=== PATIENT | female | born 1950 | race Asian ===

== ENCOUNTER 2018-04-18 14:28 | Emergency (ER) | payer MEDICARE, MEDICAID ==
--- NOTE | 2018-04-18 15:46 | ED Physician Chart ---
ED Chief Complaint/HPI - Patient Information Date Seen:: 04/18/18 Time Seen:: 15:30 Chief Complaint:: low back pain History of Present Illness:: Patient has had low back pain for last 2-3 weeks with difficulty sitting and lying down for long periods of time. No recent trauma. Language barrier. Allergies:: Allergies Allergy/AdvReac Type Severity Reaction Status Date / Time No Known Allergies Allergy Verified 04/18/18 14:59 Vitals:: Vital Signs - 8 hr 04/18/18 14:54 HR 79 RR 16 BP 137/61 Review:: Transfer documents Reviewed ED Review of Systems - Review of Systems General/Constitutional: No fever, No chills, No weight loss, No weakness, No diaphoresis, No edema, No loss of appetite Skin: No skin lesions, No rash, No bruising Head: No headache, No light-headedness Eyes: No loss of vision, No pain, No diplopia ENT: No earache, No nasal drainage, No sore throat, No tinnitus Neck: No neck pain, No swelling, No thyromegaly, No stiffness, No mass noted Cardio Vascular: No chest pain, No palpitations, No PND, No orthopnea, No edema Pulmonary: No SOB, No cough, No sputum, No wheezing GI: No nausea, No vomiting, No diarrhea, No pain, No melena, No hematochezia, No constipation, No hematemesis G/U: No dysuria, No frequency, No hematuria Musculoskeletal: Back pain, No back pain, No muscle pain Endocrine: No polyuria, No polydipsia Psychiatric: No prior psych history, No depression, No anxiety, No suicidal ideation Hematopoietic: No bruising, No lymphadenopathy Allergic/Immuno: No urticaria, No angioedema Neurological: No syncope, No focal symptoms, No weakness, No paresthesia, No headache, No seizure, No dizziness, No confusion, No vertigo ED Past Medical History - Past Medical History Past Medical History: HTN, CAD, Dyslipidemia, PUD/GERD, Arthritis, Other ( hyperlipidemia; cachexia; osteoporosis; anemia) Family History: Other (unavailable) Social History: Care Facility Surgical History: other (unavailable) Psychiatricy History: Other (unavailable) Family Medical History - Family Member Mother History Unknown: Yes ED Physical Exam - Physical Examination General/Constitutional: Awake, Well-developed, well-nourished, Alert, No distress, GCS 15, Non-toxic appearing, Ambulatory Head: Atraumatic Eyes: Lids, conjuctiva normal, PERRL, EOMI Skin: Nl inspection, No rash, No skin lesions, No ecchymosis, Well hydrated, No lymphadenopathy ENMT: External ears, nose nl, Nasal exam nl Other ENMT comments:: 3.5/4 periodontal disease Neck: Nontender, Full ROM w/o pain, No JVD, No nuchal rigidity, No bruit, No mass, No stridor Respiratory: Nl effort/Exclusion, Clear to Auscultation, No Wheeze/Rhonchi/Rales Cardio Vascular: RRR, No murmur, gallop, rubs, NL S1 S2 GI: No tenderness/rebounding/guarding, No organomegaly, No hernia, Normal BS's, Nondistended, No mass/bruits, No McBurney tenderness : No CVA tenderness Extremities: Normal digits & nails Other Extremities comments:: Lower extremities: Straight leg raising of about 70 bilaterally with 5-10 of knee flexion; deep tendon reflexes knees 1.5 out of 4; ankles 2 out of 4 Misc: Normal back, No paraspinal tenderness ED Labs/Radiology/EKG Results - Lab Results Results: Laboratory Results - last 24 hr 04/18/18 04/18/18 16:56 16:56 WBC 6.8 RBC 3.82 Hgb 12.2 Hct 36.3 L MCV 95.0 MCH 32.0 H MCHC Differential 33.7 RDW 13.0 Plt Count 285 MPV 6.2 Neutrophils % 66.7 Lymphocytes % 23.6 Monocytes % 5.9 Eosinophils % 3.3 Basophils % 0.5 Sodium 140 Potassium 3.4 L Chloride 104 Carbon Dioxide 29.6 Anion Gap 9.8 BUN 21 Creatinine 0.8 Est GFR ( Amer) > 60.0 Est GFR (Non-Af Amer) > 60.0 BUN/Creatinine Ratio 26.3 Glucose 98 Calcium 9.4 - Radiology Results Results: Lumbar spine showed osteopenia and increased stool ED Assessment - Assessment General Assessment: I spoke to Dr. Aguirre at about 1725 and he wishes the patient to return to her extended care facility. ED Septic Shock - . Is Septic Shock (SBP<90, OR Lactate>4 mmol\L) present?: No - <6hrs of presentation: Vital Signs: Vital Signs - 8 hr 04/18/18 14:54 HR 79 RR 16 BP 137/61 ED Reassessment (Disposition) - Reassessment Reassessment Condition:: Unchanged - Diagnosis Diagnosis:: Low back pain; osteopenia; constipation; hypokalemia - Aftercare/Follow up Instructions Aftercare/Follow-Up Instructions:: Refer to Discharge Instructions - Patient Disposition Discharge/Transfer:: Assistant Manager/[facility] Condition at Disposition:: Stable, Unchanged
[2018-04-18 17:05] LABS: % BASOPHILS 0.5 % (0.0-2.0); % EOSINOPHILS 3.3 % (0.0-5.0); % LYMPHOCYTES 23.6 % (20.0-50.0); % MONOCYTES 5.9 % (2.0-10.0); % NEUTROPHILS 66.7 % (40.0-80.0); EOSINOPHILE ABSOLUTE 0.2 Th/cmm (0.1-0.4); HEMATOCRIT 36.3 % (41.0-60); HEMOGLOBIN 12.2 gm/dL (12-16); LYMPHOCYTE ABSOLUTE 1.6 Th/cmm (1.5-3.0); MEAN CORPUSCULAR HGB CONC 33.7 pg (28.0-36.0); MEAN PLATELET VOLUME 6.2 fl; MONOCYTE ABSOLUTE 0.4 Th/cmm (0.3-1.0); NEUTROPHILE ABSOLUTE 4.6 Th/cmm (1.8-8.0); PLATELET COUNT 285 Th/cmm (150-400); RED BLOOD COUNT 3.82 Mil/cmm (3.80-5.20); WHITE BLOOD COUNT 6.8 Th/cmm (4.8-10.8)
[2018-04-18 17:24] LABS: ANION GAP 9.8 (7.0-16.0); BUN - UREA NITROGEN 21 mg/dL (7-25); CALCIUM SERUM 9.4 mg/dL (8.6-10.3); CARBON DIOXIDE 29.6 mEq/L (21.0-31.0); CHLORIDE 104 mEq/L (98-107); CREATININE - SERUM 0.8 mg/dL (0.6-1.2); GFR AFRICAN-AMERICAN > 60.0 ml/min (>90); GFR NON AFRICAN-AMERICAN > 60.0 ml/min; GLUCOSE 98 mg/dL (70-105); POTASSIUM SERUM 3.4 mEq/L (3.5-5.1); SODIUM SERUM 140 mEq/L (136-145)
[2018-04-18] MEDS ORDERED: Potassium Chloride 20 mEq ER Tab PO ONE ×2 (17:35→17:38)
--- NOTE | 2018-04-19 08:48 | Diagnostic Imaging Report ---
Lumbar spine 3 views Indication: Low back pain Comparison: none Findings: Exam is limited due to body habitus and osteopenia. There appear to be mild age-indeterminate but possibly chronic compression fractures of L2 and L4. [id number] degenerative changes are noted. No subluxation. Spine scoliosis is noted. There is a least partial fusion of the SI joints. Copious stool is noted gas-filled loops of bowel. Impression: Limited exam due to body habitus and osteopenia. There is very mild age indeterminate but possibly chronic compression fractures of L2 and L4. Assessment was limited due to patient's osteopenia. If necessary CT follow-up may be obtained. Mild to moderate general changes. Scoliosis. Copious stool with gas-filled loops of bowel. In the setting of trauma, if clinical symptoms persist and there is continued concern for an occult fracture, follow up exams in 5-7 days is suggested.
== END 2018-04-18 18:15 ==
LOC: ER 14:28
DX: M54.5 Low back pain (principal); E87.6 Hypokalemia; K59.00 Constipation, unspecified; M85.88 Other specified disorders of bone density and structure, other site; I10 Essential (primary) hypertension; K21.9 Gastro-esophageal reflux disease without esophagitis; E78.5 Hyperlipidemia, unspecified; M19.90 Unspecified osteoarthritis, unspecified site
CPT/HCPCS: 36415-UA; 72100-TC; 80048-TC; 85025-TC

== ENCOUNTER 2018-05-22 11:55 | Inpatient (IN) | payer MEDICARE, MEDICAID ==
[2018-05-22] MEDS ORDERED: Sodium Chloride 0.9% 1,000 ML IV ONE (12:23)
--- NOTE | 2018-05-22 12:34 | ED Physician Chart ---
ED Chief Complaint/HPI - Patient Information Date Seen:: 05/22/18 Time Seen:: 12:00 Chief Complaint:: Vomiting History of Present Illness:: onset x 2 days of N/V/D x 10; weakness, Abd. Pain, and activity; no report of trauma, H/As, neck pain, C/P, SOB, A/C, fever, chills, or urinary s/s Allergies:: Allergies Allergy/AdvReac Type Severity Reaction Status Date / Time No Known Allergies Allergy Verified 05/22/18 12:10 Vitals:: Vital Signs - 8 hr 05/22/18 11:58 Temp 98.4 F HR 75 RR 18 BP 135/78 O2 Sat % 99 Historian:: Patient, EMS Review:: Nurse's Note Reviewed, Old Chart Reviewed, EMS run form Reviewed ED Review of Systems - Review of Systems General/Constitutional: No fever, No chills, No weight loss, Weakness, No diaphoresis, No edema, No loss of appetite Skin: No skin lesions, No rash, No bruising Head: No headache, No light-headedness Eyes: No loss of vision, No pain, No diplopia ENT: No earache, No nasal drainage, No sore throat, No tinnitus Neck: No neck pain, No swelling, No thyromegaly, No stiffness, No mass noted Cardio Vascular: No chest pain, No palpitations, No PND, No orthopnea, No edema Pulmonary: No SOB, No cough, No sputum, No wheezing GI: Nausea, Vomiting, Diarrhea, Pain, No melena, No hematochezia, No constipation, No hematemesis G/U: No dysuria, No frequency, No hematuria, No nacturia Audiovisual Lead Technician: No vaginal discharge, No abnormal vaginal bleed, No contraction Musculoskeletal: No bone or joint pain, No back pain, No muscle pain Endocrine: No polyuria, No polydipsia Psychiatric: No prior psych history, No depression, No anxiety, No suicidal ideation, No homicidal ideation, No auditory hallucination, No visual hallucination Hematopoietic: No bruising, No lymphadenopathy Allergic/Immuno: No urticaria, No angioedema Neurological: No syncope, No focal symptoms, Weakness, No paresthesia, No headache, No seizure, No dizziness, No confusion, No vertigo ED Past Medical History - Past Medical History Obtainable: Yes Past Medical History: HTN, Dyslipidemia, PUD/GERD Family History: HTN Social History: Non Smoker, No Alcohol, No Drug Use, Single, Care Facility Surgical History: None Psychiatricy History: None Medication: Reviewed Family Medical History - Family Member Mother History Unknown: Yes ED Physical Exam - Physical Examination General/Constitutional: Awake, Well-developed, well-nourished, Alert, No distress, GCS 15, Non-toxic appearing, Ambulatory Head: Atraumatic Eyes: Lids, conjuctiva normal, PERRL, EOMI Skin: Nl inspection, No rash, No skin lesions, No ecchymosis, Well hydrated, No lymphadenopathy ENMT: External ears, nose nl, TM canals nl, Nasal exam nl, Lips, teeth, gums nl , Oropharynx nl, Tonsils nl Neck: Nontender, Full ROM w/o pain, No JVD, No nuchal rigidity, No bruit, No mass, No stridor Respiratory: Nl effort/Exclusion, Clear to Auscultation, No Wheeze/Rhonchi/Rales Cardio Vascular: RRR, No murmur, gallop, rubs, NL S1 S2, Carotid/Femoral/Distal pulses equal bilaterally GI: No tenderness/rebounding/guarding, No organomegaly, No hernia, Normal BS's, Nondistended, No mass/bruits, No McBurney tenderness, Rectum exam nl Other GI comments:: no pulsatile masses : No CVA tenderness Extremities: No tenderness or effusion, Full ROM, normal strength in all extremities, No edema, Normal digits & nails Neuro/Psych: Alert/oriented, DTR's symmetric, Normal sensory exam, Normal motor strength, Judgement/insight normal, Mood normal, Normal gait, No focal deficits Misc: Normal back, No paraspinal tenderness ED Labs/Radiology/EKG Results - Lab Results Comments:: Reviewed - Radiology Results Comments:: CXR: COPD; NAD - EKG Interpretations EKG Time:: 12:32 Rate & Rhythm: 69; NSR Comments:: non-specific st-t changes ED Septic Shock - . Is Septic Shock (SBP<90, OR Lactate>4 mmol\L) present?: No - <6hrs of presentation: Vital Signs: Vital Signs - 8 hr 05/22/18 11:58 Temp 98.4 F HR 75 RR 18 BP 135/78 O2 Sat % 99 ED Reassessment (Disposition) - Reassessment Reassessment Condition:: Improved - Diagnosis Diagnosis:: Dx: N/V/D; AGE; Gastroenteritis; Dehydration; Hypokalemia; Hypercalcemia - Aftercare/Follow up Instructions Aftercare/Follow-Up Instructions:: Counseled pt regarding lab results/diagnosis & need follow up, Counseled pt & family regarding lab results/diagnosis & need follow up - Patient Disposition Discharge/Transfer:: Acute Care w/in this hosp Accepting Physician:: Dr. Sauer Time Called:: 1345 Time Responded:: 13:45 Admitted to:: Telemetry Spoke to:: Dr. Sauer Admitting Medical Physician:: Dr. Sauer Condition at Disposition:: Stable, Improved
[2018-05-22 12:50] LABS: % BASOPHILS 0.7 % (0.0-2.0); % EOSINOPHILS 0.5 % (0.0-5.0); % LYMPHOCYTES 28.4 % (20.0-50.0); % MONOCYTES 7.1 % (2.0-10.0); % NEUTROPHILS 63.3 % (40.0-80.0); HEMATOCRIT 38.7 % (41.0-60); HEMOGLOBIN 13.3 gm/dL (12-16); LYMPHOCYTE ABSOLUTE 1.6 Th/cmm (1.5-3.0); MEAN CELL VOLUME 94.1 fl (81-100); MEAN CORPUSCULAR HEMOGLOBIN 32.2 pg (27.0-31.0); MEAN CORPUSCULAR HGB CONC 34.3 pg (28.0-36.0); MEAN PLATELET VOLUME 6.4 fl; MONOCYTE ABSOLUTE 0.4 Th/cmm (0.3-1.0); NEUTROPHILE ABSOLUTE 3.8 Th/cmm (1.8-8.0); PLATELET COUNT 236 Th/cmm (150-400); RED BLOOD COUNT 4.12 Mil/cmm (3.80-5.20); RED CELL DISTRIBUTION WIDTH 12.9 % (11.5-20.0); WHITE BLOOD COUNT 5.8 Th/cmm (4.8-10.8)
[2018-05-22 13:08] LABS: PROTHROMBIN TIME (TEST) 10.4 SECONDS (9.5-11.5)
[2018-05-22 13:10] LABS: AMYLASE SERUM 98 U/L (29-103); LIPASE 71 U/L (11-82)
[2018-05-22 13:13] LABS: ALB/GLOB RATIO 1.7 (1.0-1.8); ALBUMIN 4.2 gm/dL (3.7-5.3); ALKALINE PHOSPHATASE 55 U/L (34-104); ANION GAP 12.1 (7.0-16.0); BILIRUBIN,TOTAL 0.7 mg/dL (0.3-1.0); BUN - UREA NITROGEN 20 mg/dL (7-25); CALCIUM SERUM 10.7 mg/dL (8.6-10.3); CARBON DIOXIDE 33.5 mEq/L (21.0-31.0); CHLORIDE 93 mEq/L (98-107); CHOLESTEROL 157 mg/dL (<200); CREATININE - SERUM 0.8 mg/dL (0.6-1.2); CREATININE KINASE 52 U/L (30-223); GFR AFRICAN-AMERICAN > 60.0 ml/min (>90); GFR NON AFRICAN-AMERICAN > 60.0 ml/min; GLUCOSE 101 mg/dL (70-105); HDL -HIGH DENSITY LIPOPROTEIN 57 mg/dL (23-92); SGOT 17 U/L (13-39); SGPT/ALT 7 U/L (7-52); SODIUM SERUM 136 mEq/L (136-145); TOTAL PROTEIN,SERUM 6.7 gm/dL (6.0-8.3); TRIGLYCERIDES 97 mg/dL (<150)
--- NOTE | 2018-05-22 13:20 | Diagnostic Imaging Report ---
Portable chest x-ray HISTORY: Pain The heart size is normal. Atherosclerotic calcification seen in the aorta. No acute focal pulmonary processes. Small radiodensities project over the right shoulder and within the soft tissues adjacent to the left humerus. IMPRESSION: 1. No acute focal pulmonary processes 2. Atherosclerotic vascular changes
[2018-05-22 13:26] LABS: DDIMER QUANT < 100 ng/mL (100-400)
[2018-05-22 13:42] LABS: POTASSIUM SERUM 2.6 mEq/L (3.5-5.1)
[2018-05-22] MEDS ORDERED: Potassium Chloride 20 mEq ER Tab PO ONE ×2 (13:47→14:50)
[2018-05-22 15:04] LABS: URINE SOURCE CLEAN C
[2018-05-22 15:10] LABS: URINE BILIRUBIN NEGATIVE (NEGATIVE); URINE BLOOD NEGATIVE (NEGATIVE); URINE GLUCOSE (UA) NEGATIVE (NEGATIVE); URINE KETONE TRACE mg/dL (NEGATIVE); URINE LEUKOCYTE ESTERASE SMALL (NEGATIVE); URINE NITRATE NEGATIVE (NEGATIVE); URINE PROTEIN NEGATIVE (NEGATIVE)
[2018-05-22 15:27] LABS: URINE CLARITY CLEAR (CLEAR); URINE COLOR YELLOW; URINE MICROSCOPIC INDICATED? YES
[2018-05-22 15:29] LABS: URINE BACTERIA 1+ /hpf (NONE SEEN); URINE EPITHELIAL CELLS MODERATE /lpf (FEW); URINE RBC 0-2 /hpf (0-5)
[2018-05-22 15:30] LABS: URINE AMORPHOUS SEDIMENT FEW PHOSPHATES (NONE SEEN)
[2018-05-22] MEDS ORDERED: cefTRIAXone 1 GM in Sodium Chloride 0.9% 50 ML IV ONE (15:53)
[2018-05-22] MEDS ORDERED: Hydrocodone/APAP 5mg/325mg Tab PO PRN (16:19)
[2018-05-22] MEDS: D5-0.45NS 1,000 ML IV SCH (18:31)
[2018-05-22] MEDS: Levofloxacin 500mg/100mL 500 MG/100 ML BAG IV SCH (18:42)
[2018-05-22 19:02] VITALS: BP 134/75
[2018-05-22] MEDS: metroNIDAZOLE 500mg/NS 100mL 500 MG/100 ML BAG IV SCH (20:36)
[2018-05-22] MEDS: Atorvastatin Calcium 10 MG TAB PO SCH (20:36)
[2018-05-23] MEDS: metroNIDAZOLE 500mg/NS 100mL 500 MG/100 ML BAG IV SCH ×3 (01:33→17:22)
[2018-05-23 06:08] LABS: % EOSINOPHILS 0.7 % (0.0-5.0); % LYMPHOCYTES 32.9 % (20.0-50.0); % MONOCYTES 10.5 % (2.0-10.0); % NEUTROPHILS 55.9 % (40.0-80.0); HEMATOCRIT 37.9 % (41.0-60); HEMOGLOBIN 12.7 gm/dL (12-16); LYMPHOCYTE ABSOLUTE 1.9 Th/cmm (1.5-3.0); MEAN CELL VOLUME 95.8 fl (81-100); MEAN CORPUSCULAR HGB CONC 33.4 pg (28.0-36.0); MEAN PLATELET VOLUME 6.6 fl; MONOCYTE ABSOLUTE 0.6 Th/cmm (0.3-1.0); NEUTROPHILE ABSOLUTE 3.2 Th/cmm (1.8-8.0); RED BLOOD COUNT 3.96 Mil/cmm (3.80-5.20); RED CELL DISTRIBUTION WIDTH 13.6 % (11.5-20.0); WHITE BLOOD COUNT 5.7 Th/cmm (4.8-10.8)
[2018-05-23 06:14] LABS: PLATELET COUNT 182 Th/cmm (150-400)
[2018-05-23 06:23] LABS: BUN - UREA NITROGEN 10 mg/dL (7-25); CARBON DIOXIDE 27.1 mEq/L (21.0-31.0); CHLORIDE 102 mEq/L (98-107); CREATININE - SERUM 0.6 mg/dL (0.6-1.2); GFR AFRICAN-AMERICAN > 60.0 ml/min (>90); GFR NON AFRICAN-AMERICAN > 60.0 ml/min; GLUCOSE 140 mg/dL (70-105); POTASSIUM SERUM 3.1 mEq/L (3.5-5.1); SODIUM SERUM 137 mEq/L (136-145)
[2018-05-23] MEDS: D5-0.45NS 1,000 ML IV SCH (07:47)
--- NOTE | 2018-05-23 07:52 | Diagnostic Imaging Report ---
CT scan abdomen and pelvis without intravenous contrast HISTORY: Vomiting Total DLP equals 244 CTDI equals 6.0 Axial sections were obtained from the xiphoid process down to the pubic symphysis. The liver exhibits a normal size with a homogeneous parenchyma. No focal lesions. The spleen appears normal. Suboptimal delineation of the pancreatic margins. No obvious focal lesions. No focal renal lesions. No hydronephrosis. The exam of the pelvis demonstrates preservation of normal fat planes. No abnormal soft tissue masses or abnormal fluid collections. Mildly distended stool-filled large bowel noted. Findings may be associated with a degree of constipation. There is a scoliosis of the thoracolumbar spine convexity to the left associated with diffuse degenerative changes. There is compression involving the body of L2 along with sclerotic change. Pathologic compression cannot be excluded. Clinical correlation is needed. IMPRESSION: 1. Moderately distended stool-filled large bowel. The findings may be associated with constipation. 2. Compression involving the body of L2 with sclerotic change. A pathologic fracture/compression cannot be ruled out. Clinical correlation needed. 3. Scoliosis and diffuse degenerative changes throughout the spine
[2018-05-23] MEDS ORDERED: Probiotic Screen MC PRN (11:45)
[2018-05-23] MEDS ORDERED: Potassium Chloride 20 mEq ER Tab PO ONE (13:27)
--- NOTE | 2018-05-23 14:15 | History & Physical ---
ADMIT DATE: 05/23/2018 PATIENT IDENTIFICATION: A 68-year-old female. CHIEF COMPLAINT: Nausea, vomiting, diarrhea for last 2 days. HISTORY OF PRESENT ILLNESS: A 68-year-old resident of assisted living facility, has history of hypertension, hyperlipidemia, peptic ulcer disease, brought in to the Emergency Room for evaluation of persistent nausea, vomiting and diarrhea. After being ordered by Emergency Room MD, the patient is being admitted to the hospital for further treatment. PAST MEDICAL HISTORY: Remarkable for: 1. Hypertension. 2. DJD. 3. GERD. 4. Hyperlipidemia. MEDICATIONS: List has been reviewed and reconciled appropriately. ALLERGIES: The patient is not allergic to any medications. SOCIAL HISTORY: The patient resides in assisted living facility. No history of smoking cigarette, alcohol, or drug use. FAMILY MEDICAL HISTORY: Remarkable for hypertension. REVIEW OF SYSTEMS: Limited due to her language barrier. PHYSICAL EXAMINATION: GENERAL: The patient is alert, awake, lying in the bed without any acute distress. VITAL SIGNS: Temperature 99, pulse is 61, respiratory rate 18, blood pressure 112/63. HEENT: Normocephalic, atraumatic. Extraocular muscles intact. Tongue was pink and dry. NECK: Supple, no JVD, no lymphadenopathy, thyromegaly. HEART: Both heart sounds are regular. CHEST AND LUNGS: Equal in expansion, no expiratory wheezing. ABDOMEN: Soft. No guarding, rigidity or epigastric tenderness noted. Bowel sounds are present. No palpable mass. EXTREMITIES: No edema. NEUROLOGIC: Nonfocal. AVAILABLE DIAGNOSTIC DATA: Potassium of 2.6, BUN and creatinine is 20 and 0.8. CBC is within normal limit. D-dimer is less than 100. Urinalysis unremarkable. CLINICAL IMPRESSION: 1. Life threatening hypokalemia. 2. Acute onset of nausea, vomiting, diarrhea, most likely gastroenteritis. 3. Fecal impaction. 4. Hypertension. 5. Degenerative joint disease. 6. Gastroesophageal reflux disease and gastritis. PLAN: 1. Admit this patient to Med/Surg floor. 2. IV fluid. 3. Symptomatic therapy. 4. IV Flagyl and Levaquin. 5. Stool study. 6. Probiotic. 7. Await for blood cultures. 8. General nursing care. 9. Follow up lab. 10. Care plan reviewed and discussed. JOB# [id number]
[2018-05-23] MEDS: Levofloxacin 500mg/100mL 500 MG/100 ML BAG IV SCH (17:15)
[2018-05-23] MEDS: Atorvastatin Calcium 10 MG TAB PO SCH (20:01)
[2018-05-24] MEDS: metroNIDAZOLE 500mg/NS 100mL 500 MG/100 ML BAG IV SCH ×3 (00:50→16:48)
[2018-05-24] MEDS: D5-0.45NS 1,000 ML IV SCH ×2 (00:51→15:42)
[2018-05-24 06:45] LABS: % EOSINOPHILS 1.8 % (0.0-5.0); % LYMPHOCYTES 30.8 % (20.0-50.0); % MONOCYTES 8.4 % (2.0-10.0); EOSINOPHILE ABSOLUTE 0.1 Th/cmm (0.1-0.4); HEMATOCRIT 36.4 % (41.0-60); HEMOGLOBIN 12.4 gm/dL (12-16); LYMPHOCYTE ABSOLUTE 1.5 Th/cmm (1.5-3.0); MEAN CORPUSCULAR HEMOGLOBIN 32.6 pg (27.0-31.0); MEAN PLATELET VOLUME 6.7 fl; MONOCYTE ABSOLUTE 0.4 Th/cmm (0.3-1.0); NEUTROPHILE ABSOLUTE 2.9 Th/cmm (1.8-8.0); PLATELET COUNT 205 Th/cmm (150-400); RED BLOOD COUNT 3.79 Mil/cmm (3.80-5.20); RED CELL DISTRIBUTION WIDTH 13.4 % (11.5-20.0); WHITE BLOOD COUNT 4.9 Th/cmm (4.8-10.8)
[2018-05-24 06:59] LABS: ALB/GLOB RATIO 1.4 (1.0-1.8); ALBUMIN 3.6 gm/dL (3.7-5.3); ALKALINE PHOSPHATASE 44 U/L (34-104); ANION GAP 8.3 (7.0-16.0); BILIRUBIN,TOTAL 0.4 mg/dL (0.3-1.0); BUN - UREA NITROGEN 8 mg/dL (7-25); CALCIUM SERUM 8.8 mg/dL (8.6-10.3); CARBON DIOXIDE 27.6 mEq/L (21.0-31.0); CHLORIDE 104 mEq/L (98-107); CREATININE - SERUM 0.7 mg/dL (0.6-1.2); GFR AFRICAN-AMERICAN > 60.0 ml/min (>90); GFR NON AFRICAN-AMERICAN > 60.0 ml/min; GLUCOSE 128 mg/dL (70-105); MAGNESIUM 1.8 mg/dL (1.9-2.7); SGOT 14 U/L (13-39); SGPT/ALT 6 U/L (7-52); SODIUM SERUM 137 mEq/L (136-145); TOTAL PROTEIN,SERUM 6.1 gm/dL (6.0-8.3)
[2018-05-24 07:40] LABS: POTASSIUM SERUM 2.9 mEq/L (3.5-5.1)
[2018-05-24] MEDS ORDERED: Potassium Chloride 20 mEq ER Tab PO ONE (09:00)
[2018-05-24] MEDS: Lactobacillus Rhamnosus GG 15 Billion CFU CAP.SPRINK PO SCH (09:22)
[2018-05-24] MEDS: Levofloxacin 500mg/100mL 500 MG/100 ML BAG IV SCH (15:36)
[2018-05-24] MEDS ORDERED: Mag Sulfate 2gm/50mL Premix 2 GM/50 ML BAG IV ONE (19:10)
[2018-05-24] MEDS: Atorvastatin Calcium 10 MG TAB PO SCH (20:53)
[2018-05-25] MEDS: metroNIDAZOLE 500mg/NS 100mL 500 MG/100 ML BAG IV SCH ×3 (01:35→16:58)
--- NOTE | 2018-05-25 04:55 | Progress Notes ---
DATE: IDENTIFICATION: A 68-year-old female. SUBJECTIVE: The patient seen and examined. The patient is lying in the bed. The patient has no new event. Potassium is reported low. OBJECTIVE: GENERAL: The patient is eating better. Diarrhea has decreased. VITAL SIGNS: Temperature 98, pulse is 84, respiratory rate 18, and blood pressure 112/52. HEENT: No facial asymmetry. Poor dentition. NECK: Supple, no JVD. HEART: Regular. LUNGS: Clear. ABDOMEN: Soft. EXTREMITIES: No edema. CLINICAL IMPRESSION: 1. Hypokalemia. 3. Acute gastroenteritis. 4. Degenerative joint disease. 5. Hypertension. 6. Hyperlipidemia. PLAN: 1. Replace potassium and magnesium. 2. Follow up lab. 3. Symptoms management. 4. General nursing care. 5. Continue current plan as prescribed. 6. Care plan reviewed and discussed. JOB# [id number]
[2018-05-25 07:06] LABS: % EOSINOPHILS 4.6 % (0.0-5.0); % LYMPHOCYTES 27.1 % (20.0-50.0); % NEUTROPHILS 61.3 % (40.0-80.0); EOSINOPHILE ABSOLUTE 0.2 Th/cmm (0.1-0.4); HEMATOCRIT 39.6 % (41.0-60); HEMOGLOBIN 13.5 gm/dL (12-16); LYMPHOCYTE ABSOLUTE 1.5 Th/cmm (1.5-3.0); MEAN CELL VOLUME 94.9 fl (81-100); MEAN CORPUSCULAR HEMOGLOBIN 32.3 pg (27.0-31.0); MEAN PLATELET VOLUME 6.4 fl; MONOCYTE ABSOLUTE 0.4 Th/cmm (0.3-1.0); NEUTROPHILE ABSOLUTE 3.3 Th/cmm (1.8-8.0); PLATELET COUNT 208 Th/cmm (150-400); RED BLOOD COUNT 4.17 Mil/cmm (3.80-5.20); RED CELL DISTRIBUTION WIDTH 13.3 % (11.5-20.0); WHITE BLOOD COUNT 5.4 Th/cmm (4.8-10.8)
[2018-05-25 07:16] LABS: ANION GAP 8.4 (7.0-16.0); BUN - UREA NITROGEN 8 mg/dL (7-25); CALCIUM SERUM 8.9 mg/dL (8.6-10.3); CARBON DIOXIDE 27.4 mEq/L (21.0-31.0); CHLORIDE 106 mEq/L (98-107); CREATININE - SERUM 0.7 mg/dL (0.6-1.2); GFR AFRICAN-AMERICAN > 60.0 ml/min (>90); GFR NON AFRICAN-AMERICAN > 60.0 ml/min; GLUCOSE 105 mg/dL (70-105); MAGNESIUM 2.5 mg/dL (1.9-2.7); POTASSIUM SERUM 3.8 mEq/L (3.5-5.1); SODIUM SERUM 138 mEq/L (136-145)
--- NOTE | 2018-05-25 09:31 | Diagnostic Imaging Report ---
KUB abdominal film (portable) HISTORY: Pain, fecal impaction The exam demonstrates moderately distended stool-filled large bowel consistent with changes of constipation. Bowel gas pattern otherwise nonspecific. No free intraperitoneal air. Extensive vascular calcification noted. IMPRESSION: 1. Stool-filled large bowel and rectum consistent with constipation. Bowel gas pattern otherwise nonspecific. 2. Extensive atherosclerotic vascular changes
[2018-05-25] MEDS: Lactobacillus Rhamnosus GG 15 Billion CFU CAP.SPRINK PO SCH (09:43)
--- NOTE | 2018-05-26 09:29 | Progress Notes ---
DATE: IDENTIFICATION: A 68-year-old female. The patient seen and examined. The patient speaks [place] only and discussed with nursing staff, no new event. The patient remained hemodynamically stable. OBJECTIVE: VITAL SIGNS: Temperature 98.4, pulse is 70, respiratory rate is 18, blood pressure 131/70. HEENT: No facial asymmetry. NECK: Supple, no JVD. HEART: Regular. CHEST AND LUNGS: Equal in expansion, no expiratory wheezing. ABDOMEN: Soft. No guarding. No rigidity. Bowel sounds present. No palpable mass. EXTREMITIES: No edema. CLINICAL IMPRESSION: 1. Hypokalemia, resolved. 2. Acute gastroenteritis, resolved. 3. Hypertension. 4. Hyperlipidemia. 5. Degenerative joint disease. PLAN: Since the patient looks hemodynamically stable, the patient does have constipation on x-ray and extensive atherosclerotic vascular changes. The patient can have anti-constipation medications as an outpatient. Care plan has been reviewed and discussed with staff as well. JOB# [id number]
--- NOTE | 2018-05-29 17:37 | Discharge Summary ---
DATE OF DISCHARGE: 05/25/2018 PRINCIPAL DIAGNOSES: 1. Acute gastroenteritis. 2. Hypokalemia. 3. Hypertension. 4. Hyperlipidemia. 5. Degenerative joint disease. 6. Protein-calorie malnutrition. BRIEF STATEMENT FOR THE REASON FOR ADMISSION: A 68-year-old female, resident of half-way, brought in to the Emergency Room after the patient was having nausea, vomiting, diarrhea for last 2 days. Please refer to my H and P for further information. HOSPITAL COURSE: The patient was admitted to [facility]. The patient did have a life-threatening hypokalemia, which was replaced. Symptomatic therapy for nausea, vomiting, diarrhea was given to the patient. The patient also noted a fecal impaction as well. The patient did have empirical IV Levaquin and Flagyl. Stool study was ordered, though since the patient was in the hospital, the patient did not have diarrhea and stool study was not done at all. The patient did have a urine culture, which revealed mixed urogenital teodora as well. Blood cultures were reported normal as well. MRSA was also unremarkable. The patient did have a persistent hypokalemia, which was secondary to hypomagnesemia, which was also treated as well. Once the patient was stable enough, decision was made that the patient should be discharged to a lower level of care. The patient was discharged to lower level of care on 05/29/2018 in stable condition. At the time of discharge, all of her meds were reconciled. [facility]# [id number]
== END 2018-05-25 18:43 | disposition home or self-care (01) | DRG 391 ==
LOC: ER 11:55 → MSI 16:00
PROVIDERS: ADMIT Internal Medicine; ATTEND Internal Medicine
DX: K52.9 Noninfective gastroenteritis and colitis, unspecified (principal); E41 Nutritional marasmus; Z68.1 Body mass index [BMI] 19.9 or less, adult; E87.6 Hypokalemia; K56.41 Fecal impaction; I10 Essential (primary) hypertension; M19.90 Unspecified osteoarthritis, unspecified site; K21.9 Gastro-esophageal reflux disease without esophagitis; E78.5 Hyperlipidemia, unspecified; E83.52 Hypercalcemia; K27.9 Peptic ulcer, site unspecified, unspecified as acute or chronic, without hemorrhage or perforation; K29.70 Gastritis, unspecified, without bleeding; Z82.49 Family history of ischemic heart disease and other diseases of the circulatory system
CPT/HCPCS: 36415-UA; 71045-TC; 74000-TC; 80048-TC; 80053-TC; 80061-TC; 81001-TC; 82150-TC; 82550-TC; 83605; 83690-TC; 83735-TC; 83880-TC; 84443-TC; 84484-TC; 85025-TC; 85379-TC; 85610-TC; 85730-TC; 87086-90; 90799; 93005; 94760; 96374; C9113; J0696; J1956; J3475; J3480